=== PATIENT | female | born 2000 | race African-American/Black ===

== ENCOUNTER 2020-09-29 17:07 | Emergency (ER) | payer OTHER ==
[~2020-09-29] VITALS: Ht 167.6 cm; Wt 74.8 kg
[2020-09-29 17:23] VITALS: BP 124/56
--- NOTE | 2020-09-29 18:26 | NUR ---
20YO F PRESENTS TO ED WITH LOWER ABDOMINAL PAIN AND URINARY HESITANCY X 1 DAY. 5/10, PRESSURE-LIKE. PT NOTED IRRITATION AND REDNESS ON BILATERAL LABIA. PT ALSO REPORTS DIARRHEA X TODAY. DENIES FEVER, DYSURIA. IN ED, VSS. ABDOMEN SOFT AND NON-TENDER, BOWEL SOUNDS ACTIVE ON ALL QUADRANTS. PT POSITIONED COMFORABLY IN BED. ERMD MADE AWARE OF PT STATUS. LMP: AUGUST 2020 PMH: POLYCYSTIC OVARIAN SYNDROME MED: METFORMIN NKA
--- NOTE | 2020-09-29 19:14 | NUR ---
RECIVED REPORT FROM BRIAN GALE, CONTINUATION OF CARE.
--- NOTE | 2020-09-29 19:37 | NUR ---
Female Electronics Mechanic accompanied female patient for Pelvic Exam. Per ERMD no wet mount needed. Patient tolerated well.
[2020-09-29] MEDS ORDERED: cefTRIAXone 500 MG VIAL ONE (19:40)
[2020-09-29] MEDS ORDERED: LIDOCAINE MPF 1% 5 ML ONE (19:40)
[2020-09-29] MEDS ORDERED: FLUC150T PO (19:42)
[2020-09-29] MEDS ORDERED: DOXY100C9 PO (19:42)
[2020-09-29] MEDS: cefTRIAXone 500 MG in LIDOCAINE MPF 1% 1 ML IM ONE (19:49)
[2020-09-29 19:57] VITALS: BP 122/64
--- NOTE | 2020-09-29 19:57 | NUR ---
Patient discharged with v/s stable. Written and verbal after care instructions given and explained. Patient alert, oriented and verbalized understanding of instructions. Ambulatory with steady gait. All questions addressed prior to discharge. ID band removed. Patient advised to follow up with PMD. Rx of FLUCONAZOLE, DOXYCYCLINE given. Patient educated on indication of medication including possible reaction and side effects. Opportunity to ask questions provided and answered.
[2020-09-29 21:48] LABS: APPEARANCE,URINE CLEAR (CLEAR); BILIRUBIN,URINE NEGATIVE (NEGATIVE); BLOOD, URINE NEGATIVE (NEGATIVE); COLOR,URINE YELLOW (YELLOW); LEUKOCYTE ESTERASE ,URINE NEGATIVE (NEGATIVE); NITRITE, URINE NEGATIVE (NEGATIVE); UGLUCOSE NEGATIVE (NEGATIVE)
[2020-09-29 22:13] LABS: RBC,URINE 0-5 /HPF (0-5); WBC,URINE 0-5 /HPF (0-5)
== END 2020-09-29 19:57 | disposition home or self-care (01) ==
LOC: MED 17:07
DX: B37.3 Candidiasis of vulva and vagina (principal)
CPT/HCPCS: 36415; 81001; 81025; 87086; 87491; 96372; 99283; J0696; J2001